=== PATIENT | male | born 1970 | race Caucasian/White ===

== ENCOUNTER 2017-02-08 21:57 | Emergency (ER) | payer SELFPAY ==
--- NOTE | 2017-02-08 22:27 | EDM.PDOC ---
ED HPI GENERAL MEDICAL PROBLEM - General Chief Complaint: Headache Stated Complaint: PAIN BACK OF HEAD/HEADACHES Time Seen by Provider: 02/08/17 22:09 - History of Present Illness INITIAL COMMENTS - FREE TEXT/NARRATIVE: HISTORY AND PHYSICAL: History of present illness: The patient is a 46-year-old male who presents with a 4-5 day history of feeling a bump on the back of his head and a 2 day history of pain in the area. The patient says the pain is localized to the bump on the back of his head and he denies any recent trauma. He has no blurred vision nausea or vomiting and no bony neck pain back pain or other systemic complaints. He says the pain radiates up to the top of his head as well as down his neck but originates from the bump. The patient tried to manipulate the area today . He has been using [id number] ibuprofen for pain twice a day. Review of systems: As per history of present illness and below otherwise all systems reviewed and negative. Past medical history: As per history of present illness and as reviewed below otherwise noncontributory. Surgical history: As per history of present illness and as reviewed below otherwise noncontributory. Social history: No reported history of drug or alcohol abuse. Family history: As per history of present illness and as reviewed below otherwise noncontributory. Physical exam: Gen.: Well-developed well-nourished male who is nontoxic and vital signs been reviewed by me. HEENT: Atraumatic, normocephalic, pupils reactive, EOMs intact negative for conjunctival pallor or scleral icterus, mucous membranes moist, throat clear, neck supple, nontender, trachea midline. There are no midline step-offs in his defects of the cervical spine. At the occipital scalp area near the occipital ridge there is a 5 x 4 cm hardened well demarcated indurated area which is tender to palpation and there is a small punctum at its center but no drainage is appreciated. I am unable to express any fluid in the area is grossly indurated. It is not warm and there is no other surrounding soft tissue swelling or erythema. There is no nuchal rigidity Lungs: Clear to auscultation, breath sounds equal bilaterally, chest nontender. Heart: S1S2, regular rate and rhythm no overt murmurs Abdomen: Soft, nondistended, nontender. NABS Genitourinary: Deferred. Rectal: Deferred. Extremities: Atraumatic, negative for cords or calf pain. Neurovascular unremarkable. Neuro: Awake, alert, oriented. Cranial nerves II through XII unremarkable. Cerebellum unremarkable. Motor and sensory unremarkable throughout. Exam nonfocal. Diagnostics: [] Therapeutics: [] I discussed with the patient that currently there is nothing that I can drain from this area that we would treat it with antibiotics: Down allowing to regress in size and I would refer him to have it removed by one of our surgeons. I will give him tramadol for home for pain as well as Bactrim antibiotics. Impression: Infected scalp cyst with associated headache Definitive disposition and diagnosis as appropriate pending reevaluation and review of above. - Related Data Allergies Allergy/AdvReac Type Severity Reaction Status Date / Time No Known Allergies Allergy Verified 02/08/17 22:11 Home Meds: Home Meds . [No Known Home Meds] 02/08/17 [History] Past Medical History Cardiovascular History: Reports: Hypertension Respiratory History: Reports: Asthma, Other (See Below) Other Respiratory History: double pneumonia 3 yrs ago Social & Family History - Family History Cardiac: Reports: Hypertension - Tobacco Use Smoking Status *Q: Never Smoker - Caffeine Use Caffeine Use: Reports: None - Recreational Drug Use Recreational Drug Use: Yes Drug Use in Last 12 Months: No ED ROS GENERAL - Review of Systems Review Of Systems: ROS reveals no pertinent complaints other than HPI. ED EXAM, GENERAL - Physical Exam Exam: See Below (See dictation) Course - Vital Signs Last Recorded V/S: Last Vital Signs Temp 36.3 C 02/08/17 22:04 Pulse 67 02/08/17 22:04 Resp 18 02/08/17 22:04 BP 145/94 H 02/08/17 22:04 Pulse Ox 96 02/08/17 22:04 Departure - Departure Time of Disposition: 22:25 Disposition: Home, Self-Care 01 Condition: Good Clinical Impression: Scalp cyst Headache Qualifiers: Headache type: unspecified Headache chronicity pattern: acute headache Intractability: not intractable Qualified Code(s): R51 - Headache - Discharge Information Forms: ED Department Discharge Additional Instructions: The following information is given to patients seen in the emergency department who are being discharged to home. This information is to outline your options for follow-up care. We provide all patients seen in our emergency department with a follow-up referral. The need for follow-up, as well as the timing and circumstances, are variable depending upon the specifics of your emergency department visit. If you don't have a primary care physician on staff, we will provide you with a referral. We always advise you to contact your personal physician following an emergency department visit to inform them of the circumstance of the visit and for follow-up with them and/or the need for any referrals to a consulting specialist. The emergency department will also refer you to a specialist when appropriate. This referral assures that you have the opportunity for followup care with a specialist. All of these measure are taken in an effort to provide you with optimal care, which includes your followup. Under all circumstances we always encourage you to contact your private physician who remains a resource for coordinating your care. When calling for followup care, please make the office aware that this follow-up is from your recent emergency room visit. If for any reason you are refused follow-up, please contact the [facility] emergency department at and ask to speak to the emergency department charge nurse. [facility] Primary [facility]- Internal Medicine and [facility] [address] [place] [address] [facility] Specialty clinic-Plastic Surgery and Hand Surgery Professional [address] [id number] [facility] Specialty Care-General Surgery [address] [id number] Please take antibiotic --Bactrim --until they're finished and do not manipulate the area or squeeze the area. There may be some drainage from the area but just keep clean and dry. Please call and schedule follow-up appointment in our clinic and you may also call one of our surgeons to schedule follow-up for definitive removal of the cyst. Return to ER as needed and as discussed. Continue to use [id number] ibuprofen/Motrin 800 mg every 8 hours as you choose and also at the tramadol you have been prescribed tonight as needed.
== END 2017-02-08 22:44 | disposition home or self-care (01) ==
LOC: MW.ED 21:57
CPT/HCPCS: 99282